=== PATIENT | female | born 1990 | race Caucasian/White ===

== ENCOUNTER 2018-04-17 18:03 | Inpatient (IN) | payer OTHER ==
[~2018-04-17] VITALS: Ht 160 cm; Wt 77.8 kg
--- NOTE | ~2018-04-17 | EKG ---
[address] [employer] [place] [address] ELECTROCARDIOGRAM REPORT Name: NAVJOT VIEIRA Room #: 239-P ADM IN M.R.#: [id number] Admission: 04/17/18 Attend Phys: Kishore Swann MD Discharge: Date of : 88 Report #: [id number] THIS REPORT FOR: //name// [facility] ED Test Date: 2018-04-17 Test Time: 19:11:09 Pat Name: NAVJOT VIEIRA Department: Room: 239 Gender: F Registered Nurse Ambulatory: TATO : 1990 Requested By: Kezia Cortes Order Number: [id number] MD: Chang Brown Measurements Intervals Adrian Rate: 95 P: 77 KS: 147 QRS: 60 QRSD: 79 T: 62 QT: 343 QTc: 431 Interpretive Statements Sinus rhythm RSR' in V1 or V2, probably normal variant Compared to ECG 06/07/2015 18:16:02 RSR' in V1 or V2 now present Electronically Signed On 04-18-2018 8:13:31 CDT by Chang Brown [email or web address] <ELECTRONICALLY SIGNED> By: Chang Brown MD, [facility] 04/18/18812 10 10 Chang Brown MD, [facility] /EPI
[~2018-04-17 18:03] MED LIST: ADDERALL 30 MG30 MG PO; HUMULIN R500 UNIT/M; LANTUS100 UNIT/M SUBQ; NORCO 5-325 TA1 EACH PO; XANAX 0.5 MG0.5 MG PO; ZOFRAN ODT4 MG PO
[2018-04-17 18:13] VITALS: BP 118/81
[2018-04-17 18:17] LABS: URINE BILIRUBIN NEGATIVE (Negative); URINE BLOOD NEGATIVE (Negative); URINE CLARITY CLEAR; URINE COLOR YELLOW; URINE GLUCOSE-RANDOM* 3+ (Negative); URINE KETONES 3+ (Negative); URINE LEUKOCYTES-REFLEX NEGATIVE (Negative); URINE NITRITE-REFLEX NEGATIVE (Negative); URINE PROTEIN (DIPSTICK) NEGATIVE (Negative); URINE UROBILINOGEN 0.2 E.U./dl (0.2-1.0)
[2018-04-17 19:01] LABS: ABSOLUTE NEUTROPHILS 8.1 thou/uL (1.4-8.2); BASOPHILS 0.5 % (0.0-2.0); EOSINOPHILS 1.1 % (0.0-3.0); HEMOGLOBIN 14.9 gm/dL (12.0-15.0); LYMPHOCYTES 20.7 % (24.0-44.0); MCH 31.3 pg (26.0-34.0); MCHC 32.5 g/dL (28.0-37.0); MCV 96.3 fL (80.0-100.0); MONOCYTES 5.9 % (1.0-8.0); PLATELET COUNT 316 thou/uL (150-400); POLYS 71.8 % (36.0-66.0); RBC 4.77 mil/uL (4.20-5.00); RDW 13.4 % (10.5-14.5); WBC 11.4 thou/uL (4.0-11.0)
[2018-04-17 19:24] LABS: ALBUMIN 4.9 g/dL (3.4-5.0); CALCIUM 10.1 mg/dL (8.5-10.1); CREATININE 1.2 mg/dL (0.6-1.0); POTASSIUM 5.1 mmol/L (3.5-5.1)
[2018-04-17 19:47] LABS: TROPONIN-I <0.06 ng/mL (<0.06)
[2018-04-17] MEDS ORDERED: ALPRAZOLAM 0.50.5 M1 PO (20:06)
[2018-04-17 21:17] VITALS: BP 129/71
[2018-04-17 22:00] VITALS: BP 116/72
[2018-04-17 23:00] VITALS: BP 120/69
[2018-04-17 23:45] LABS: CALCIUM 8.9 mg/dL (8.5-10.1); POTASSIUM 4.3 mmol/L (3.5-5.1)
[2018-04-17 23:48] LABS: ALBUMIN 3.8 g/dL (3.4-5.0); MAGNESIUM 1.9 mg/dL (1.8-2.4); PHOSPHORUS 2.6 mg/dL (2.5-4.9)
[2018-04-18] VITALS (15 sets, daily range): BP systolic 96–132; BP diastolic 66–86
[2018-04-18 05:19] LABS: PHOSPHORUS 3.9 mg/dL (2.5-4.9)
[2018-04-18 05:22] LABS: ALBUMIN 3.3 g/dL (3.4-5.0); CALCIUM 8.7 mg/dL (8.5-10.1); CREATININE 0.7 mg/dL (0.6-1.0); POTASSIUM 3.9 mmol/L (3.5-5.1); TOTAL BILIRUBIN 0.6 mg/dL (<0.1-1.0); TOTAL PROTEIN 6.7 g/dL (6.4-8.2)
[2018-04-18 05:23] LABS: BASOPHILS 0.7 % (0.0-2.0); EOSINOPHILS 1.7 % (0.0-3.0); HEMATOCRIT 37.9 % (37.0-47.0); LYMPHOCYTES 36.6 % (24.0-44.0); MCH 31.1 pg (26.0-34.0); MCHC 34.1 g/dL (28.0-37.0); MCV 91.4 fL (80.0-100.0); MONOCYTES 8.2 % (1.0-8.0); PLATELET COUNT 312 thou/uL (150-400); POLYS 52.8 % (36.0-66.0); RBC 4.15 mil/uL (4.20-5.00); RDW 13.3 % (10.5-14.5); WBC 7.6 thou/uL (4.0-11.0)
[2018-04-18 05:24] LABS: HEMOGLOBIN 12.9 gm/dL (12.0-15.0)
[2018-04-19 04:00] VITALS: BP 113/82
[2018-04-19 05:23] LABS: BASOPHILS 0.7 % (0.0-2.0); EOSINOPHILS 4.1 % (0.0-3.0); HEMATOCRIT 36.7 % (37.0-47.0); HEMOGLOBIN 12.6 gm/dL (12.0-15.0); LYMPHOCYTES 44.9 % (24.0-44.0); MCH 31.9 pg (26.0-34.0); MCHC 34.3 g/dL (28.0-37.0); MCV 93.1 fL (80.0-100.0); MONOCYTES 7.5 % (1.0-8.0); PLATELET COUNT 272 thou/uL (150-400); POLYS 42.8 % (36.0-66.0); RBC 3.94 mil/uL (4.20-5.00); RDW 13.6 % (10.5-14.5)
[2018-04-19 05:46] LABS: ALBUMIN 3.1 g/dL (3.4-5.0); CALCIUM 8.5 mg/dL (8.5-10.1); CREATININE 0.6 mg/dL (0.6-1.0); MAGNESIUM 1.8 mg/dL (1.8-2.4); PHOSPHORUS 3.4 mg/dL (2.5-4.9); POTASSIUM 3.7 mmol/L (3.5-5.1); TOTAL BILIRUBIN 0.3 mg/dL (<0.1-1.0); TOTAL PROTEIN 6.4 g/dL (6.4-8.2)
[2018-04-19 08:30] VITALS: BP 120/75
[2018-04-19 12:24] VITALS: BP 120/75
== END 2018-04-19 13:51 | disposition home or self-care (01) | DRG 637 ==
LOC: ER 18:03 → EROBS 20:15 → ICU 20:15
PROVIDERS: Emergency Medicine; Internal Medicine; Nurse Practitioner Family
DX: E10.10 Type 1 diabetes mellitus with ketoacidosis without coma (principal); N17.0 Acute kidney failure with tubular necrosis; E87.1 Hypo-osmolality and hyponatremia; E86.0 Dehydration; F41.9 Anxiety disorder, unspecified; F32.9 Major depressive disorder, single episode, unspecified; F17.210 Nicotine dependence, cigarettes, uncomplicated; Z79.4 Long term (current) use of insulin; Z79.899 Other long term (current) drug therapy
CPT/HCPCS: 10078

== ENCOUNTER 2018-05-26 10:23 | Emergency (ER) | payer OTHER ==
[~2018-05-26] VITALS: Ht 160 cm; Wt 81.2 kg
[~2018-05-26 10:23] MED LIST changes: +ALPRAZOLAM 0.50.5 M1 PO
[2018-05-26] MEDS ORDERED: NEURONTIN 300300 M1 PO (10:29)
[2018-05-26] MEDS ORDERED: VALACYCLOVIR HCL1 GM PO (10:30)
[2018-05-26] MEDS ORDERED: ZOSTRIX56.6 G1 TOP (11:13)
[2018-05-26] MEDS ORDERED: HYDROCODONE-AP1 EAC6 PO (11:13)
== END 2018-05-26 11:30 | disposition home or self-care (01) ==
LOC: ER 10:23
DX: B02.29 Other postherpetic nervous system involvement (principal); B02.9 Zoster without complications; F17.210 Nicotine dependence, cigarettes, uncomplicated; E10.10 Type 1 diabetes mellitus with ketoacidosis without coma; F41.9 Anxiety disorder, unspecified; F32.9 Major depressive disorder, single episode, unspecified

== ENCOUNTER 2018-07-04 10:19 | Emergency (ER) | payer OTHER ==
[~2018-07-04] VITALS: Ht 157.5 cm; Wt 72.6 kg
[~2018-07-04 10:19] MED LIST changes: +HYDROCODONE-AP1 EAC6 PO; +NEURONTIN 300300 M1 PO; +VALACYCLOVIR HCL1 GM PO; +ZOSTRIX56.6 G1 TOP
[2018-07-04 10:27] VITALS: BP 163/91
[2018-07-04] MEDS ORDERED: LANTUS SUBQ (10:55)
[2018-07-04] MEDS ORDERED: NOVOLOG FL100 UNIT/M SUBQ (10:55)
[2018-07-04] MEDS ORDERED: NOVOFINE 321 EACH SUBQ (10:55)
== END 2018-07-04 11:03 | disposition home or self-care (01) ==
LOC: ER 10:19
DX: E10.9 Type 1 diabetes mellitus without complications (principal); F17.210 Nicotine dependence, cigarettes, uncomplicated

== ENCOUNTER 2018-08-16 19:06 | Emergency (ER) | payer OTHER ==
[~2018-08-16] VITALS: Ht 157.5 cm; Wt 8.2 kg
[~2018-08-16 19:06] MED LIST changes: +LANTUS SUBQ; +NOVOFINE 321 EACH SUBQ; +NOVOLOG FL100 UNIT/M SUBQ
[2018-08-16 19:15] VITALS: BP 112/85
[2018-08-16] MEDS ORDERED: NORCO 5-325 TA1 EACH PO (19:49)
[2018-08-16] MEDS ORDERED: MOBIC7.5 MG PO (19:49)
== END 2018-08-16 20:20 | disposition home or self-care (01) ==
LOC: ER 19:06
DX: S93.492A Sprain of other ligament of left ankle, initial encounter (principal); S93.692A Other sprain of left foot, initial encounter; F17.210 Nicotine dependence, cigarettes, uncomplicated; E10.10 Type 1 diabetes mellitus with ketoacidosis without coma; F41.9 Anxiety disorder, unspecified; F32.9 Major depressive disorder, single episode, unspecified; W01.0XXA Fall on same level from slipping, tripping and stumbling without subsequent striking against object, initial encounter; Y92.89 Other specified places as the place of occurrence of the external cause; Y93.89 Activity, other specified; Y99.8 Other external cause status

== ENCOUNTER 2019-01-01 11:48 | Emergency (ER) | payer OTHER ==
[~2019-01-01] VITALS: Ht 160 cm; Wt 77.8 kg
[~2019-01-01 11:48] MED LIST changes: +MOBIC7.5 MG PO
[2019-01-01] MEDS ORDERED: MAGOX 400400 MG PO (13:32)
[2019-01-01] MEDS ORDERED: AMPHETAMINE SAL30 MG PO (13:32)
[2019-01-01] MEDS ORDERED: BENADRYL25 MG PO (13:33)
[2019-01-01] MEDS ORDERED: ALLEGRA ALLERG180 MG PO (13:33)
[2019-01-01 14:21] VITALS: BP 126/74
[2019-01-01] MEDS ORDERED: ULTRAM 50MG TAB50 MG PO (14:25)
== END 2019-01-01 14:25 | disposition home or self-care (01) ==
LOC: ER 11:48
DX: S61.411A Laceration without foreign body of right hand, initial encounter (principal); E10.10 Type 1 diabetes mellitus with ketoacidosis without coma; F17.210 Nicotine dependence, cigarettes, uncomplicated; W26.8XXA Contact with other sharp object(s), not elsewhere classified, initial encounter; Y93.89 Activity, other specified; Y92.89 Other specified places as the place of occurrence of the external cause; Y99.8 Other external cause status

== ENCOUNTER 2020-04-01 10:56 | Emergency (ER) | payer OTHER ==
[~2020-04-01] VITALS: Ht 165.1 cm; Wt 77.1 kg
[~2020-04-01 10:56] MED LIST changes: +ALLEGRA ALLERG180 MG PO; +AMPHETAMINE SAL30 MG PO; +BENADRYL25 MG PO; +MAGOX 400400 MG PO; +ULTRAM 50MG TAB50 MG PO
[2020-04-01] MEDS ORDERED: PROMETHAZINE-D473 M1 PO (11:35)
[2020-04-01 13:01] LABS: ABSOLUTE NEUTROPHILS 6.6 thou/uL (1.4-8.2); BASOPHILS 0.5 % (0.0-2.0); EOSINOPHILS 0.8 % (0.0-3.0); HEMATOCRIT 42.3 % (37.0-47.0); HEMOGLOBIN 14.5 gm/dL (12.0-15.0); LYMPHOCYTES 27.7 % (24.0-44.0); MCH 31.9 pg (26.0-34.0); MCHC 34.3 g/dL (28.0-37.0); MCV 93.1 fL (80.0-100.0); PLATELET COUNT 374 thou/uL (150-400); RBC 4.55 mil/uL (4.20-5.00); RDW 13.4 % (10.5-14.5); WBC 10.3 thou/uL (4.0-11.0)
[2020-04-01 13:10] LABS: ANION GAP 11 mmol/L (7-16); BUN 11 mg/dL (7-18); CALCIUM 8.8 mg/dL (8.5-10.1); CHLORIDE 103 mmol/L (98-107); CO2 23 mmol/L (21-32); CREATININE 0.6 mg/dL (0.6-1.0); GLUCOSE 130 mg/dL (74-106); SODIUM 137 mmol/L (136-145)
[2020-04-01 13:11] LABS: POTASSIUM 4.8 mmol/L (3.5-5.1)
[2020-04-01 13:17] LABS: ALBUMIN 3.6 g/dL (3.4-5.0); DIRECT BILIRUBIN < 0.1 mg/dL (<0.1-0.2); SGOT 21 U/L (15-37); SGPT 27 U/L (30-65); TOTAL BILIRUBIN 0.4 mg/dL (0.2-1.0); TOTAL PROTEIN 7.4 g/dL (6.4-8.2)
[2020-04-01] MEDS ORDERED: ZOFRAN ODT4 MG PO (13:42)
[2020-04-01] MEDS ORDERED: GUAIFEN-CODEINE10 ML PO (13:42)
[2020-04-01 13:49] VITALS: BP 125/88
== END 2020-04-01 14:02 | disposition home or self-care (01) ==
LOC: ER 10:56
PROVIDERS: Emergency Medicine
DX: U07.1 COVID-19 (principal); R11.2 Nausea with vomiting, unspecified; R19.7 Diarrhea, unspecified; E10.9 Type 1 diabetes mellitus without complications; F32.9 Major depressive disorder, single episode, unspecified; F41.9 Anxiety disorder, unspecified; F17.210 Nicotine dependence, cigarettes, uncomplicated; Z79.4 Long term (current) use of insulin; Z79.899 Other long term (current) drug therapy